=== PATIENT | female | born 1945 | race Asian ===

== ENCOUNTER 2017-09-27 14:29 | Inpatient (IN) | payer MEDICARE, OTHER ==
[~2017-09-27] VITALS: Ht 134.6 cm; Wt 41.0 kg
[2017-09-27] VITALS (380 sets, daily range): BP systolic 139–142; BP diastolic 80–100; PULSE 92–95; TEMP 97.3–99; O2SAT 80–100
[2017-09-27 16:53] LABS: PROTHROMBIN TIME 11.7 SECONDS (9.7-12.8)
[2017-09-27 17:15] LABS: MUCOUS Present /lpf; PH 5 (5-8); SQUAMOUS EPITHELIAL None Seen /hpf; URINE APPEARANCE Clear; URINE BACTERIA Rare /hpf; URINE BILIRUBIN Negative (NEGATIVE); URINE BLOOD Negative (NEGATIVE); URINE COLOR Yellow; URINE GLUCOSE Negative (NEGATIVE); URINE KETONE Negative (NEGATIVE); URINE LEUKOCYTE ESTERASE Negative (NEGATIVE); URINE NITRATE Positive (NEGATIVE); URINE PROTEIN(semi-quant) Negative (NEGATIVE); URINE RBC 0-2 /hpf; URINE UROBILINOGEN Negative (NEGATIVE)
[2017-09-27 17:36] LABS: TROPONIN-I 0.024 ng/mL (0.000-0.034)
[2017-09-27 17:40] LABS: CALCIUM 8.3 mg/dL (8.4-10.2); CREATININE, serum 0.54 mg/dL (0.52-1.25); POTASSIUM 3.4 mmol/L (3.4-5.0)
[2017-09-27 17:47] LABS: COLLECTION METHOD CLEAN CATCH
[2017-09-27 17:54] LABS: TSH w REFLEX 1.74 uIU/mL (0.465-4.680)
[2017-09-28] VITALS (1273 sets, daily range): BP systolic 98–134; BP diastolic 70–100; PULSE 80–131; TEMP 97.2–99.7; O2SAT 45–100
[2017-09-28 06:08] LABS: BASO % 0.4 % (0.0-2.0); EOS % 0.3 % (0-4.0); GRAN # 5.4 (1.4-6.5); GRAN % 72.2 % (42.2-75.2); LYMPH # 0.8 (1.2-3.4); LYMPH % 11.1 % (20.0-51.0); MEAN CELL VOLUME 89 fl (80.0-100.0); MEAN CORPUSCULAR HEMOGLOBIN 29 pg (27.0-31.0); MEAN CORPUSCULAR HGB CONC 33 g/dl (33.0-37.0); MEAN PLATELET VOLUME 9.7 fl (7.4-10.4); MONO # 1.2 (0.1-0.6); MONO % 15.6 % (1.7-9.3); PLATELET COUNT 168 K/mm3 (130-400); RED BLOOD COUNT 3.74 M/mm3 (4.10-5.30); REDCELL DISTRIBUTION WIDTH-CV 13.5 % (11.5-14.5)
[2017-09-28 06:19] LABS: HEMATOCRIT 33.4 % (37.0-47.0)
[2017-09-28 06:28] LABS: CALCIUM 7.6 mg/dL (8.4-10.2); CREATININE, serum 0.48 mg/dL (0.52-1.25); MAGNESIUM 2.9 mg/dL (1.6-2.3); POTASSIUM 3.6 mmol/L (3.4-5.0)
[2017-09-28 06:35] LABS: TROPONIN-I 0.012 ng/mL (0.000-0.034)
[2017-09-28 09:12] LABS: PARTIAL THROMBOPLASTIN TIME 67.2 SECONDS (26.0-37.0)
[2017-09-28] MEDS ORDERED: COLACE 100100 MG/CAP PO (10:50)
[2017-09-28] MEDS ORDERED: ZESTORETIC 12.51 TA1 PO (10:51)
[2017-09-28] MEDS ORDERED: MOTRIN 400400 MG/TAB PO (10:51)
[2017-09-28] MEDS ORDERED: KLOR-CON 88 ME1 PO (10:52)
[2017-09-28] MEDS ORDERED: MULTI VITAMINS1 TAB PO (10:52)
[2017-09-29] VITALS (1093 sets, daily range): BP systolic 109–130; BP diastolic 74–95; PULSE 89–98; TEMP 97.4–98.9; O2SAT 37–100
[2017-09-29 05:26] LABS: HEMOGLOBIN 10.1 g/dl (12.5-16.0); MEAN CELL VOLUME 92 fl (80.0-100.0); MEAN CORPUSCULAR HEMOGLOBIN 30 pg (27.0-31.0); MEAN CORPUSCULAR HGB CONC 32 g/dl (33.0-37.0); MEAN PLATELET VOLUME 9.6 fl (7.4-10.4); PLATELET COUNT 161 K/mm3 (130-400); RED BLOOD COUNT 3.41 M/mm3 (4.10-5.30); REDCELL DISTRIBUTION WIDTH-CV 13.3 % (11.5-14.5)
[2017-09-29 05:36] LABS: CALCIUM 7.4 mg/dL (8.4-10.2); CREATININE, serum 0.62 mg/dL (0.52-1.25); POTASSIUM 3.7 mmol/L (3.4-5.0)
[2017-09-29 05:37] LABS: HEMATOCRIT 31.5 % (37.0-47.0)
[2017-09-29 06:13] LABS: BAND 6 % (0-10); LYMPHOCYTE 19 % (20.0-51.0); NEUTROPHILS 55 % (42.0-75.2); PLATELET ESTIMATE NORMAL (NORMAL)
[2017-09-29 06:14] LABS: POLYCHROMASIA 1+
[2017-09-29 06:15] LABS: ANISOCYTOSIS 2+
[2017-09-30] VITALS (945 sets, daily range): BP systolic 93–126; BP diastolic 68–114; PULSE 62–74; TEMP 96.6–97.8; O2SAT 64–100
[2017-09-30 05:26] LABS: BASO % 0.2 % (0.0-2.0); GRAN # 6.9 (1.4-6.5); GRAN % 80.8 % (42.2-75.2); LYMPH # 0.7 (1.2-3.4); LYMPH % 7.6 % (20.0-51.0); MEAN CELL VOLUME 90 fl (80.0-100.0); MEAN CORPUSCULAR HGB CONC 33 g/dl (33.0-37.0); MEAN PLATELET VOLUME 10.1 fl (7.4-10.4); MONO # 0.9 (0.1-0.6); MONO % 10.7 % (1.7-9.3); PLATELET COUNT 133 K/mm3 (130-400); RED BLOOD COUNT 2.81 M/mm3 (4.10-5.30); REDCELL DISTRIBUTION WIDTH-CV 12.7 % (11.5-14.5)
[2017-09-30 05:31] LABS: HEMATOCRIT 25.2 % (37.0-47.0); HEMOGLOBIN 8.3 g/dl (12.5-16.0); MEAN CORPUSCULAR HEMOGLOBIN 30 pg (27.0-31.0)
[2017-09-30 05:32] LABS: CALCIUM 7.3 mg/dL (8.4-10.2); CREATININE, serum 0.45 mg/dL (0.52-1.25); POTASSIUM 3.2 mmol/L (3.4-5.0)
[2017-10-01] VITALS (11 sets, daily range): BP systolic 94–128; BP diastolic 52–83; PULSE 64–86; TEMP 97.4–98.4
[2017-10-01 07:03] LABS: BASO % 0.2 % (0.0-2.0); EOS # 0.2 (0.0-0.7); EOS % 2.2 % (0-4.0); GRAN # 6.1 (1.4-6.5); GRAN % 73.9 % (42.2-75.2); LYMPH # 1.3 (1.2-3.4); LYMPH % 15.2 % (20.0-51.0); MEAN CELL VOLUME 91 fl (80.0-100.0); MEAN CORPUSCULAR HGB CONC 32 g/dl (33.0-37.0); MEAN PLATELET VOLUME 10.1 fl (7.4-10.4); MONO # 0.7 (0.1-0.6); PLATELET COUNT 149 K/mm3 (130-400); RED BLOOD COUNT 2.63 M/mm3 (4.10-5.30); REDCELL DISTRIBUTION WIDTH-CV 12.9 % (11.5-14.5)
[2017-10-01 07:07] LABS: HEMOGLOBIN 7.6 g/dl (12.5-16.0); MEAN CORPUSCULAR HEMOGLOBIN 29 pg (27.0-31.0)
[2017-10-01 07:23] LABS: CALCIUM 7.8 mg/dL (8.4-10.2); CREATININE, serum 0.45 mg/dL (0.52-1.25); POTASSIUM 3.6 mmol/L (3.4-5.0)
[2017-10-01 13:06] LABS: CALCIUM 7.9 mg/dL (8.4-10.2); CREATININE, serum 0.46 mg/dL (0.52-1.25); POTASSIUM 3.8 mmol/L (3.4-5.0)
[2017-10-02 02:00] VITALS: BP 108/68; PULSE 74; TEMP 98
[2017-10-02 03:48] VITALS: BP 116/65; PULSE 79; TEMP 98.2
[2017-10-02 06:59] LABS: BASO % 0.6 % (0.0-2.0); EOS # 0.3 (0.0-0.7); EOS % 3.9 % (0-4.0); GRAN # 4.6 (1.4-6.5); GRAN % 67.5 % (42.2-75.2); LYMPH # 1.3 (1.2-3.4); LYMPH % 18.6 % (20.0-51.0); MEAN CELL VOLUME 89 fl (80.0-100.0); MEAN CORPUSCULAR HGB CONC 32 g/dl (33.0-37.0); MEAN PLATELET VOLUME 10.2 fl (7.4-10.4); MONO # 0.6 (0.1-0.6); MONO % 9.1 % (1.7-9.3); PLATELET COUNT 185 K/mm3 (130-400); RED BLOOD COUNT 2.64 M/mm3 (4.10-5.30); REDCELL DISTRIBUTION WIDTH-CV 13.1 % (11.5-14.5)
[2017-10-02 07:00] LABS: HEMATOCRIT 23.6 % (37.0-47.0); HEMOGLOBIN 7.6 g/dl (12.5-16.0); MEAN CORPUSCULAR HEMOGLOBIN 29 pg (27.0-31.0)
[2017-10-02 07:13] LABS: CALCIUM 8.2 mg/dL (8.4-10.2); CREATININE, serum 0.51 mg/dL (0.52-1.25)
[2017-10-02 07:55] VITALS: BP 116/72; PULSE 79; TEMP 98.1
[2017-10-02] MEDS ORDERED: FERROUS SU325 MG/TAB PO (09:25)
[2017-10-02] MEDS ORDERED: CORDARONE200 MG/TAB PO (09:29)
[2017-10-02] MEDS ORDERED: ASPIRIN 32325 MG/TA1 PO (09:29)
[2017-10-02] MEDS ORDERED: NORCO 325 MG-51 TAB PO (09:30)
[2017-10-02] MEDS ORDERED: TYLENOL 325MG325 MG PO (09:31)
[2017-10-02] MEDS ORDERED: GOOD NEIGH1200 MG/15 PO (09:31)
[2017-10-02] MEDS ORDERED: THIAMINE 1100 MG/TAB PO (09:32)
[2017-10-02] MEDS ORDERED: PROTONIX 40MG T40 MG PO (09:32)
[2017-10-02] MEDS ORDERED: FOLIC ACID 11 MG/TA1 PO (09:32)
[2017-10-02 10:18] VITALS: BP 114/84; PULSE 77
[2017-10-02 10:55] VITALS: BP 114/84; PULSE 77; TEMP 98.1
[2017-10-02 11:39] VITALS: BP 134/89; PULSE 72; TEMP 98.3
== END 2017-10-02 12:23 | DRG 481 ==
LOC: MEDICAL 14:29 → SURG 15:36 → ICU 15:36 → SURG 09-30 18:03
PROVIDERS: Hospitalist; Orthopaedic Surgery Sports Medicine; Physician Assistant
PROC: 0QS7XZZ Reposition Left Upper Femur, External Approach (ICD-10-PCS; 2017-09-29)
PROC: 0QH736Z Insertion of Intramedullary Internal Fixation Device into Left Upper Femur, Percutaneous Approach (ICD-10-PCS; principal; 2017-09-29 08:00)
DX: S72.142A Displaced intertrochanteric fracture of left femur, initial encounter for closed fracture (principal); E87.1 Hypo-osmolality and hyponatremia; F10.231 Alcohol dependence with withdrawal delirium; D62 Acute posthemorrhagic anemia; E44.0 Moderate protein-calorie malnutrition; W18.30XA Fall on same level, unspecified, initial encounter; E87.6 Hypokalemia; I08.1 Rheumatic disorders of both mitral and tricuspid valves; I48.91 Unspecified atrial fibrillation; I27.22 Pulmonary hypertension due to left heart disease; I10 Essential (primary) hypertension; F17.210 Nicotine dependence, cigarettes, uncomplicated
CPT/HCPCS: 99223-AI; 99232-AI; 99233-AI; 99239; A9502; C1713; J0282; J0690; J1100; J1644; J2060; J2250; J2270; J2704; J2785; J2795; J3010; J3475; J3480; J7040; J7042; J7060; J7120